=== PATIENT | female | born 1980 | race Two or more races ===

== ENCOUNTER 2022-10-21 18:20 | Emergency (ER) | payer MEDICARE, MEDICAID ==
[~2022-10-21] VITALS: Ht 157.5 cm; Wt 68.0 kg
[2022-10-21 20:07] LABS: BASOPHILS % 0.6 % (0.0-2.0); HEMATOCRIT. 42.2 % (36.0-48.0); HEMOGLOBIN. 13.3 g/dL (12.0-16.0); LYMPHOCYTES % 19.8 % (20.0-50.0); MEAN CORPUSCULAR HEMOGLOBIN 30.3 pg (28.0-32.0); MEAN CORPUSCULAR VOLUME 95.9 fL (81.0-99.0); MEAN PLATELET VOLUME 8.4 fl (7.4-10.4); MONOCYTES % 5.8 % (2.0-8.0); NEUTROPHILS % 71.8 % (40.0-76.0); PLATELET 266 x1000/uL (130-400); RED CELL DISTRIBUTION WIDTH 13.5 % (11.6-14.6)
[2022-10-21 20:17] LABS: CHLORIDE 108 mEq/L (98-107)
[2022-10-21 20:56] LABS: HCG SCREEN NEGATIVE
[2022-10-21 23:04] VITALS: BP 91/57
== END 2022-10-22 06:39 | disposition home or self-care (01) ==
LOC: ER 18:20
DX: R46.2 Strange and inexplicable behavior (principal); R55 Syncope and collapse; Z88.8 Allergy status to other drugs, medicaments and biological substances; Z88.9 Allergy status to unspecified drugs, medicaments and biological substances; Z86.59 Personal history of other mental and behavioral disorders
CPT/HCPCS: 36415; 71045; 80053; 84703; 85025; 93005; 99285

== ENCOUNTER 2023-10-05 14:31 | Emergency (ER) | payer MEDICARE, MEDICAID ==
[~2023-10-05] VITALS: Ht 165.1 cm; Wt 70.0 kg
[2023-10-05 14:33] VITALS: O2SAT 100
[2023-10-05] MEDS: SODIUM CHLORIDE 0.9% 1,000 ML IV ONE (15:38)
[2023-10-05] MEDS: LEVETIRACETAM 500MG PREMIX 100 ML IV ONE (15:43)
[2023-10-05 15:55] LABS: EOSINOPHILS % 1.9 % (0.0-5.0); HEMATOCRIT. 40.9 % (36.0-48.0); HEMOGLOBIN. 13.7 g/dL (12.0-16.0); LYMPHOCYTES % 24.4 % (20.0-50.0); MEAN CORPUSCULAR HEMOGLOBIN 30.8 pg (28.0-32.0); MEAN CORPUSCULAR HGB CONC 33.4 g/dL (31.0-37.0); MEAN CORPUSCULAR VOLUME 92.3 fL (81.0-99.0); MEAN PLATELET VOLUME 8.5 fl (7.4-10.4); MONOCYTES % 5.6 % (2.0-8.0); NEUTROPHILS % 67.1 % (40.0-76.0); PLATELET 230 x1000/uL (130-400); RED BLOOD CELL COUNT 4.43 mill/uL (4.2-5.4); RED CELL DISTRIBUTION WIDTH 12.7 % (11.6-14.6)
[2023-10-05 16:33] LABS: ALANINE AMINOTRANSFERASE 44 IU/L (10-49); ALBUMIN 4.5 g/dL (3.2-4.8); ASPARTATE AMINOTRANSFERASE 27 IU/L (<34); BILIRUBIN TOTAL 0.3 mg/dL (0.1-1.0); CALCIUM 8.8 mg/dL (8.7-10.4); CARBAMAZEPINE 0.8 ug/mL (4-12); CARBON DIOXIDE 23 mEq/L (21-32); CHLORIDE 109 mEq/L (98-107); CREATININE 0.5 mg/dL (0.6-1.0); GLUCOSE 101 mg/dL (70-105); POTASSIUM 4.2 mEq/L (3.5-5.1); SODIUM 136 mEq/L (136-145); VALPROIC ACID 3.2 ug/mL (50-100)
[2023-10-05 16:35] LABS: ETHANOL BLOOD < 10 mg/dL (<10); PHENYTOIN < 2.0 ug/mL (10-20); TROPONIN I HIGH SENSITIVITY < 4 ng/L (3.0-34); UREA NITROGEN BLOOD < 5 mg/dL (9-23)
[2023-10-05 19:16] LABS: CLARITY URINE CLEAR (CLEAR); COLOR URINE YELLOW (YELLOW); GLUCOSE URINE NEGATIVE (NEGATIVE); KETONES URINE NEGATIVE (NEGATIVE); LEUKOCYTE ESTERASE URINE TRACE (NEGATIVE); NITRITE URINE POSITIVE (NEGATIVE); OCCULT BLOOD URINE 1+ (NEGATIVE); PH URINE 7.5 (4.5-8.0); PROTEIN URINE NEGATIVE (NEGATIVE); SPECIFIC GRAVITY URINE 1.009 (1.005-1.030); UROBILINOGEN URINE 0.2 E.U./dL (0.2-1.0)
[2023-10-05 19:35] LABS: *AMPHETAMINES SCREEN URINE NEGATIVE (NEGATIVE); *BARBITURATES SCREEN URINE NEGATIVE (NEGATIVE); *BENZODIAZEPINES SCREEN URINE PRESUMPTIVE POSITIVE (NEGATIVE); *COCAINE SCREEN URINE NEGATIVE (NEGATIVE); CANNABINOID URINE SCREEN NEGATIVE (NEGATIVE); ECSTASY MDMA SCREEN URINE NEGATIVE (NEGATIVE); METHADONE URINE SCREEN Neg (NEGATIVE); OPIATES URINE SCREEN NEGATIVE (NEGATIVE); PHENCYCLIDINE URINE SCREEN NEGATIVE (NEGATIVE)
[2023-10-05 19:38] LABS: BACTERIA URINE 3+; SQUAMOUS EPITHELIAL CELL URINE FEW /lpf (RARE/1+); WBC URINE 0-2 /hpf (0-2)
[2023-10-05] MEDS: CEFTRIAXONE 1GM/50ML 50 ML IV ONE (19:47)
[2023-10-05] MEDS ORDERED: CEPH500T MT (21:23)
[2023-10-05 21:47] VITALS: BP 110/55; PULSE 86; RESP 13; TEMP 98.1
== END 2023-10-05 23:30 | disposition home or self-care (01) ==
LOC: ER 14:42
DX: G40.89 Other seizures (principal); N39.0 Urinary tract infection, site not specified
CPT/HCPCS: 80053; 80305; 81003; 80320; 80156; 80185; 80165; 85025; 84484; 36415; 70450; 93005; 96367; 96365; 99285; J1953; J0696; J7030; G0480